=== PATIENT | male | born 1990 | race Two or more races ===

== ENCOUNTER 2021-04-01 14:20 | Inpatient (IN) | payer OTHER ==
[~2021-04-01] VITALS: Ht 175.3 cm; Wt 79.5 kg
--- NOTE | 2021-04-01 14:30 | NUR ---
Pt triaged and assessed. CO x2 at bedside with pt. Pt in waist chain, RUE cuff and BLE cuffs in custody of CO's. Awaiting MD moreland.
--- NOTE | 2021-04-01 14:50 | NUR ---
Report given and care transferred.
--- NOTE | 2021-04-01 14:55 | NUR ---
report from merissa elena
[2021-04-01] MEDS ORDERED: PYRI25TA3 PO (15:06)
[2021-04-01] MEDS ORDERED: ISON300T10 PO (15:06)
[2021-04-01] MEDS ORDERED: IBUP-1902 PO (15:06)
[2021-04-01] MEDS ORDERED: RIFA150T2 PO (15:06)
--- NOTE | 2021-04-01 16:00 | NUR ---
pt to ct
[2021-04-01] MEDS: PLEASE ENTER ALLERGIES MC SCH (19:00)
[2021-04-01] MEDS ORDERED: HYDROmorphone 1 MG/ML, 1ML INJ IV ONE (19:00)
[2021-04-01] MEDS ORDERED: HYDROmorphone 2 MG/ML, 1ML ONE (19:03)
--- NOTE | 2021-04-01 19:07 | NUR ---
REPORT GIVEN TO GABINO FLEMING.
--- NOTE | 2021-04-01 19:33 | NUR ---
piv placed and pt medicated for pain per emar
--- NOTE | 2021-04-01 19:52 | NUR ---
report to quynh elena
--- NOTE | 2021-04-01 20:15 | NUR ---
pt to ct at this time
[2021-04-01 20:16] LABS: BASOPHILS % (AUTO) 0 % (0-1); EOSINOPHILS % (AUTO) 1 % (1-7); LYMPHOCYTES % (AUTO) 19 % (22-44); MEAN CORPUSCULAR HEMOGLOBIN 29.5 pg (27.5-34.5); MEAN CORPUSCULAR HGB CONC 33.4 g/dL (33.2-36.2); MEAN PLATELET VOLUME 8.1 fL (7.4-10.4); MONOCYTES % (AUTO) 11 % (2-9); NEUTROPHILS % (AUTO) 69 % (42-75); PLATELET COUNT 246 x10^3/uL (130-400); RED BLOOD COUNT 5.25 x10^6/uL (4.38-5.82); RED CELL DISTRIBUTION WIDTH 12.9 % (9.4-14.8)
[2021-04-01 20:24] LABS: ALBUMIN 3.7 g/dL (3.4-5.0); ANION GAP 4 mmol/L (5-15); CALCIUM 9.1 mg/dL (8.5-10.1); CHLORIDE 102 mmol/L (98-107)
[2021-04-01] MEDS ORDERED: BISACODYL 10 MG SUPP PR PRN (20:30)
[2021-04-01] MEDS ORDERED: ONDANSETRON 2MG/ML, 2ML IVPush PRN (20:30)
[2021-04-01 20:50] VITALS: BP 140/86
[2021-04-01] MEDS: morphine SULFATE 10 MG/ML, 1ML IVPush PRN (21:23)
[2021-04-01] MEDS: CHLORHEXIDINE 15 ML UDC MM SCH (21:37)
[2021-04-01] MEDS: AMPICILLIN/SULBACTAM 3 GM in SODIUM CHLORIDE 0.9% 100 ML IV SCH (21:37)
[2021-04-02] MEDS: PLEASE ENTER ALLERGIES MC SCH ×2 (00:41→07:25)
[2021-04-02] MEDS: morphine SULFATE 10 MG/ML, 1ML IVPush PRN ×2 (01:01→05:01)
[2021-04-02 02:57] VITALS: BP 138/71
[2021-04-02] MEDS: AMPICILLIN/SULBACTAM 3 GM in SODIUM CHLORIDE 0.9% 100 ML IV SCH ×2 (05:01→15:04)
[2021-04-02 05:25] LABS: BASOPHILS % (AUTO) 1 % (0-1); EOSINOPHILS % (AUTO) 1 % (1-7); LYMPHOCYTES % (AUTO) 22 % (22-44); MEAN CORPUSCULAR HEMOGLOBIN 29.7 pg (27.5-34.5); MEAN CORPUSCULAR HGB CONC 33.7 g/dL (33.2-36.2); MEAN PLATELET VOLUME 7.6 fL (7.4-10.4); MONOCYTES % (AUTO) 15 % (2-9); NEUTROPHILS % (AUTO) 61 % (42-75); PLATELET COUNT 214 x10^3/uL (130-400); RED BLOOD COUNT 4.98 x10^6/uL (4.38-5.82); RED CELL DISTRIBUTION WIDTH 12.8 % (9.4-14.8)
[2021-04-02 05:40] LABS: ANION GAP 6 mmol/L (5-15); CHLORIDE 101 mmol/L (98-107)
[2021-04-02 05:43] LABS: CREATININE 0.86 mg/dL (0.7-1.3)
[2021-04-02] MEDS: CHLORHEXIDINE 15 ML UDC MM SCH ×3 (05:57→21:11)
[2021-04-02] MEDS: SODIUM CHLORIDE 0.9% 1,000 ML IV SCH (07:53)
[2021-04-02 07:56] VITALS: BP 137/75
[2021-04-02] MEDS ORDERED: KETOROLAC 30 MG/1 ML IVPush PRN (08:00)
[2021-04-02] MEDS ORDERED: ACETAMINOPHEN 325 MG TABLET PO PRN ×2 (08:00→12:00)
[2021-04-02 09:12] LABS: INTERNATIONAL NORMALIZED RATIO 0.98 (0.93-1.1); PROTHROMBIN TIME 10.5 Seconds (9.6-11.5)
[2021-04-02] MEDS ORDERED: CHLORHEXIDINE 15 ML UDC PO ONE (10:30)
[2021-04-02] MEDS ORDERED: OXYMETAZOLINE NASAL SPRAY 0.05%,30ML ONE ×2 (10:38→10:41)
[2021-04-02] MEDS ORDERED: LIDOCAINE 1%, 20ML ONE (10:41)
[2021-04-02] MEDS ORDERED: BALANCED SALT OPHTH IRRIG SOLN 18ML ONE (10:41)
[2021-04-02] MEDS ORDERED: EPINEPHRINE 1 MG/ML, 1ML ONE (10:41)
[2021-04-02] MEDS ORDERED: MIDAZOLAM 1 MG/ML, 2ML ONE (10:42)
[2021-04-02] MEDS ORDERED: FENTANYL PF 250 MCG/5ML ONE (11:07)
[2021-04-02] MEDS ORDERED: PROMETHAZINE 25 MG/ML, 1ML IVPush PRN (12:00)
[2021-04-02] MEDS ORDERED: HYDROmorphone 1 MG/ML, 1ML INJ IVPush PRN (12:00)
[2021-04-02] MEDS ORDERED: ONDANSETRON 2MG/ML, 2ML IVPush PRN (12:00)
[2021-04-02] MEDS ORDERED: MEPERIDINE/PF 25MG/0.5ML IVPush PRN (12:00)
[2021-04-02] MEDS ORDERED: LABETALOL 5MG/ML, 20ML IV PRN (12:00)
[2021-04-02] MEDS ORDERED: hydrALAzine 20 MG/ML, 1ML IV PRN (12:00)
[2021-04-02] MEDS ORDERED: OXYcodone 5 MG/5 ML ORAL.SOL UDC PO PRN (12:00)
[2021-04-02] MEDS ORDERED: ROCURONIUM 10MG/ML,5ML ONE (12:42)
[2021-04-02] MEDS ORDERED: ONDANSETRON 2MG/ML, 2ML ONE (12:42)
[2021-04-02] MEDS ORDERED: DEXAMETHASONE 4 MG/ML, 1ML ONE ×2 (12:42)
[2021-04-02] MEDS ORDERED: PROPOFOL 10 MG/ML, 20ML ONE (12:42)
[2021-04-02] MEDS ORDERED: GLYCOPYRROLATE 0.2MG/1ML, 5ML ONE (12:44)
[2021-04-02] MEDS ORDERED: NEOSTIGMINE 1 MG/ML, 10ML ONE (12:44)
[2021-04-02] MEDS ORDERED: FENTANYL PF 100 MCG/2ML ONE ×2 (13:28→13:55)
[2021-04-02] MEDS: FENTANYL PF 100 MCG/2ML IV PRN ×4 (13:30→14:23)
[2021-04-02] MEDS ORDERED: ACETAMINOPHEN 650 MG/20.3 ML UDC ONE (13:52)
[2021-04-02] MEDS ORDERED: OXYcodone 5 MG/5 ML ORAL.SOL UDC ONE (13:53)
[2021-04-02 14:45] VITALS: BP 138/82
[2021-04-02] MEDS ORDERED: MORPHINE SULFATE 4 MG/ML, 1ML IV PRN (15:30)
[2021-04-02] MEDS ORDERED: CHLORHEXIDINE 15 ML UDC ONE (15:32)
[2021-04-02 18:35] VITALS: BP 144/85
[2021-04-02] MEDS: AMPICILLIN/SULBACTAM 1,500 MG in SODIUM CHLORIDE 0.9% 50 ML IV SCH (21:11)
[2021-04-02] MEDS: OXYcodone IR 5MG TABLET PO PRN (21:12)
[2021-04-03 00:07] VITALS: BP 135/76
[2021-04-03] MEDS: OXYcodone IR 5MG TABLET PO PRN ×2 (01:07→06:12)
[2021-04-03] MEDS: ACETAMINOPHEN 500 MG TABLET PO PRN ×3 (01:07→18:11)
[2021-04-03] MEDS: SODIUM CHLORIDE 0.9% 1,000 ML IV SCH ×2 (02:46→16:17)
[2021-04-03] MEDS: AMPICILLIN/SULBACTAM 1,500 MG in SODIUM CHLORIDE 0.9% 50 ML IV SCH ×3 (03:01→13:43)
[2021-04-03 03:58] VITALS: BP 122/71
[2021-04-03] MEDS: CHLORHEXIDINE 15 ML UDC MM SCH (07:59)
[2021-04-03] MEDS ORDERED: OXYcodone 5 MG/5 ML ORAL.SOL UDC PO PRN (08:30)
[2021-04-03] MEDS ORDERED: morphine SULFATE 10 MG/ML, 1ML IV PRN (08:30)
[2021-04-03 08:46] VITALS: BP 122/78
[2021-04-03 14:15] VITALS: BP 136/78
[2021-04-03] MEDS ORDERED: AMOX1TAB64 PO (15:39)
[2021-04-03] MEDS ORDERED: NAPR-856 PO (15:41)
[2021-04-03] MEDS ORDERED: CHLO15MO PO (15:43)
[2021-04-03] MEDS ORDERED: CHLO473M MM (15:46)
[2021-04-03] MEDS ORDERED: ACET-1600 PO (15:46)
== END 2021-04-03 18:50 | DRG 141 ==
LOC: ED 18:27 → EDIP 18:38 → 4NE 20:50
PROVIDERS: ADMIT Internal Medicine; ATTEND Internal Medicine
PROC: 0NST04Z Reposition Right Mandible with Internal Fixation Device, Open Approach (ICD-10-PCS; 2021-04-02)
PROC: 0CDXXZ0 Extraction of Lower Tooth, Single, External Approach (ICD-10-PCS; 2021-04-02)
PROC: 0NSV04Z Reposition Left Mandible with Internal Fixation Device, Open Approach (ICD-10-PCS; principal; 2021-04-02 11:00)
DX: S02.652A Fracture of angle of left mandible, initial encounter for closed fracture (principal); E87.1 Hypo-osmolality and hyponatremia; S02.69XA Fracture of mandible of other specified site, initial encounter for closed fracture; Z20.1 Contact with and (suspected) exposure to tuberculosis; S42.142A Displaced fracture of glenoid cavity of scapula, left shoulder, initial encounter for closed fracture; S03.2XXA Dislocation of tooth, initial encounter; Z20.822 Contact with and (suspected) exposure to COVID-19; Z86.11 Personal history of tuberculosis; Y08.89XA Assault by other specified means, initial encounter; Y93.89 Activity, other specified; Y92.89 Other specified places as the place of occurrence of the external cause; Y99.8 Other external cause status
CPT/HCPCS: 36415; 99285; J3490; 70486; 80048; 82040; 85025; 85610; 87635; C1713; G0378; J0171; J0295; J1100; J1170; J1885; J2250; J2405; J2704; J2710; J3010; J2270; J7030